=== PATIENT | female | born 1995 | race Caucasian/White ===

== ENCOUNTER 2024-08-25 01:56 | Outpatient (CLI) | payer OTHER, SELFPAY ==
--- NOTE | 2024-08-25 | DI.US_ITS ---
Exam(s) MG MAMMO DIAGNOSTIC BI US BREAST LT LIMITED EXAM: MG MAMMO DIAGNOSTIC BI CLINICAL HISTORY: LUMP LEFT BREAST N63.20 FIRM MASS 11 O'CLOCK 1 CM AND ADJACENT TO AREOLA. COMPARISON: US US BREAST LT LIMITED from 08/25/2024 TECHNIQUE: Craniocaudal and mediolateral oblique Full Field Digital Mammography views of both breast s with Computer Aided Diagnosis followed by Tomosynthesis and left breast ultrasound. FINDINGS: Mammography/Tomosynthesis: Masses: Circumscribed ovoid lesion noted in the upper inner quadrant near the areola, measuring 2 cm in greatest dimension. Architectural Distortion: None seen. Microcalcifications: No suspicious pleomorphic-type are seen. Skin Thickening/Nipple Retraction: None. Left breast US: Echotexture: Normal appearance of the glandular tissue. Shadowing: No suspicious foci. Cyst: None. Solid lesions: Hypoechoic circumscribed avascular lesion measuring 1.5 x 1.2 x 2.1 cm with appearance consistent with a benign fibroadenoma. Ductal dilation: None. IMPRESSION: 1. No evidence of malignancy is noted. Palpable abnormality has the appearance of a fibroadenoma. 2. Unless there is more urgent need, follow-up screening mammography is recommended, as per [employer] [employer] guidelines. BI-RADS Category 3 - 6 month - Probably Benign Finding: Recommend follow-up ultrasound in 6 months Density: Breast density category C or D implies that the patient has dense breast tissue. Dense breast tissue is very common and is not abnormal but dense breast tissue can make it harder to find cancer on a ma mmogram. Also, dense breast tissue may increase their breast cancer risk. This information about the result of the mammogram report was provided to the patient to raise their awareness. Use this report when you speak with the patient about their risks for breast cancer, which includes their family hist ory. At that time, you may recommend for more screening tests (Ultrasound or MRI) as they might be us eful based on their risk. A negative radiographic report should not delay biopsy if a dominant or clinically suspicious mass is present. Up to ten percent of cancers are not identified on mammography. A negative report may reinforce clinical impression. Adenosis and dense breasts may obscure an underlying neoplasm. False positive reports average 6 to 10%. Patient will receive a letter notifying them of these results.
== END 2024-08-25 02:16 ==
PROVIDERS: Visit Provider Family Medicine
DX: Z12.31 Encounter for screening mammogram for malignant neoplasm of breast (principal); N63.22 Unspecified lump in the left breast, upper inner quadrant
CPT/HCPCS: 76642; 77062; 77066; G0279

== ENCOUNTER 2025-04-02 15:52 | Outpatient (REF) | payer OTHER, SELFPAY ==
--- NOTE | 2025-04-02 07:45 | PAPFT_PTH ---
PATIENT: Anne Miranda LOC: [facility] U#:[id number] AGE/SX: 29/F ROOM: RE04/02/[address]: Yaquelin Gil : 1995 BED: DIS: 04/02/2025 SPEC #: [id number] RECD: 04/02/25 17:57 STATUS: DUANE CUENCA #: [id number] ROSEANNA: 04/02/25 07:[address]: Yaquelin Gil DEPT: [facility] Cytology RECD BY: Kathryn Varela Tissues: 1 - CX/ENDOCX FOR PAP SMEARS Procedures: PAP THIN PREP/[facility] Screening Comments: [id number]
== END 2025-04-02 15:53 | disposition home or self-care (01) ==
LOC: NCHCN 15:52
PROVIDERS: PCP Family Medicine; Visit Provider Family Medicine
DX: Z12.4 Encounter for screening for malignant neoplasm of cervix (principal)
CPT/HCPCS: 88142

== ENCOUNTER 2025-04-02 15:56 | Outpatient (CLI) | payer OTHER, SELFPAY ==
--- NOTE | 2025-04-02 15:45 | DI.RAD_ITS ---
Exam(s) XR TOE LT GREAT EXAM: XR TOE LT GREAT CLINICAL HISTORY: T14.90XA Great toe injury. TECHNIQUE: 2D digital imaging was performed. COMPARISON: No exams were available for comparison FINDINGS: 3 views There is a thin nondisplaced longitudinal orientated linear lucency in the medial aspect of the distal phalanx of the great toe. This may represent a subtle fracture. There appears to be some overlying soft tissue injury. There is no radiopaque foreign body evident. This probable fracture line does not extend into the interphalangeal joint. There are no fractures in the proximal phalanx nor in the great toe metatarsal. No incidental osseous lesions nor erosions. IMPRESSION: Subtle nondisplaced fracture in the medial aspect of the distal phalanx of the great toe. No radiopaque foreign body. DATA REPOSITORY: RADIATION DOSE DELIVERED:
== END 2025-04-02 16:16 ==
LOC: DI 15:57
PROVIDERS: PCP Family Medicine; Visit Provider Physician Assistant
DX: T14.90XD Injury, unspecified, subsequent encounter (principal); S92.424D Nondisplaced fracture of distal phalanx of right great toe, subsequent encounter for fracture with routine healing; X58.XXXD Exposure to other specified factors, subsequent encounter
CPT/HCPCS: 73660

== ENCOUNTER 2025-04-16 04:21 | Outpatient (CLI) | payer OTHER, SELFPAY ==
--- NOTE | 2025-04-16 08:38 | DI.RAD_ITS ---
Exam(s) XR FOOT LT COMPLETE XR TOE LT GREAT EXAM: XR FOOT LT COMPLETE CLINICAL HISTORY: ? any displacement,nondisplaced fx great toe,open fx,contusion lt foot,. TECHNIQUE: 2D digital imaging was performed. Three views of the foot and great toe.. COMPARISON: CR XR TOE LT GREAT from 04/02/2025 CR XR TOE LT GREAT from 04/16/2025 FINDINGS: BONES: Stable alignment of nondisplaced distal phalangeal fracture. No bony destructive lesion is seen. JOINTS: No dislocation present. No significant degenerative changes. The plantar arch is maintained. SOFT TISSUE: A bandage overlies the great toe. IMPRESSION: Stable alignment of distal phalangeal fracture. No additional abnormalities DATA REPOSITORY: RADIATION DOSE DELIVERED:
== END 2025-04-16 04:41 ==
LOC: DI 04:52
PROVIDERS: PCP Family Medicine; Visit Provider Podiatrist
DX: S92.405A Nondisplaced unspecified fracture of left great toe, initial encounter for closed fracture (principal); S92.402B Displaced unspecified fracture of left great toe, initial encounter for open fracture; S90.32XA Contusion of left foot, initial encounter
CPT/HCPCS: 73630; 73660

== ENCOUNTER → 2025-05-18 08:29 | Outpatient (CLI) | payer OTHER, SELFPAY ==
--- NOTE | 2025-05-18 08:15 | DI.RAD_ITS ---
Exam(s) XR TOE LT GREAT EXAM: XR TOE LT GREAT CLINICAL HISTORY: Healing?, open fracture lt great toe, nondisplaced fracture, contusion. TECHNIQUE: 2D digital imaging was performed. Three views. COMPARISON: CR XR TOE LT GREAT from 04/16/2025 FINDINGS: BONES: No there has been some interval healing of the previously noted fracture of the distal phalanx. The fracture line is faintly visible.. No bony destructive lesion is seen. JOINTS: No dislocation present. No significant degenerative changes. SOFT TISSUE: Normal. IMPRESSION: Healing fracture of the distal phalanx of the great toe. DATA REPOSITORY: RADIATION DOSE DELIVERED:
== END ==
LOC: DI 08:29
PROVIDERS: PCP Family Medicine; Visit Provider Podiatrist
DX: S92.402B Displaced unspecified fracture of left great toe, initial encounter for open fracture (principal); S92.405A Nondisplaced unspecified fracture of left great toe, initial encounter for closed fracture; S90.32XA Contusion of left foot, initial encounter
CPT/HCPCS: 73660